=== PATIENT | female | born 1975 | race American Indian/Alaskan Native ===

== ENCOUNTER 2019-11-06 11:36 | Observation (INO) | payer OTHER ==
[2019-11-06 12:51] LABS: Mean Corpuscular HGB Conc 27 % (30-34); Red Blood Count 3.71 M/mm3 (3.65-5.03)
[2019-11-06 12:59] LABS: Mean Corpuscular Volume 52 fl (79-97); Red Cell Distribution Width 32.2 % (13.2-15.2)
[2019-11-06 13:02] LABS: Hematocrit 19.3 % (30.3-42.9); Hemoglobin 5.1 gm/dl (10.1-14.3)
[2019-11-06 13:05] LABS: Blood Urea Nitrogen 8 mg/dL (7-17); Calcium 9.4 mg/dL (8.4-10.2); Hemolysis Index 3
[2019-11-06 13:23] LABS: BUN/Creatinine Ratio 11
[2019-11-06 13:41] LABS: Total Cells Counted 100
[2019-11-06 13:45] LABS: Band Neutrophils # (Manual) 0.1 K/mm3; Basophils % (Manual) 0 % (0.0-1.8)
[2019-11-06 13:51] LABS: Anisocytosis 3+; Hypochromasia 3+; Macrocytosis 1+; Poikilocytosis 3+
[2019-11-06 13:52] LABS: Ovalocytes 1+; Schistocytes 1+; Target Cells Few; Tear Drop Cells 1+
[2019-11-06 13:55] LABS: Platelet Estimate Consistent w Auto
[2019-11-06 13:56] LABS: Platelet Count 117 K/mm3 (140-440)
[2019-11-06] MEDS ORDERED: SODIUM CHLORIDE 0.9% 500 ML 500 ML IV ONE (14:20)
--- NOTE | 2019-11-06 14:24 | Emergency Department Report ---
HPI - General Chief Complaint: Recheck/Abnormal Lab/Rx Time Seen by Provider: 11/06/19 14:15 - HPI HPI: 44-year-old female presents to the emergency department with a complaint of some generalized fatigue and she was sent in to be seen by an urgent care secondary to low hemoglobin. The patient went to the urgent care last weekend when she felt very weak, lightheaded, and had passed out at that time. Patient feels improved from last weekend but still has some fatigue. Patient denies any current vaginal bleeding, rectal bleeding, or any known bleeding. However, she does have a history of fibroids and has had some irregular menstrual cycles in the past. She denies any shortness of breath, chest pain, fever, nausea, vomiting or diaphoresis. She has not taken anything for symptoms prior to presentation today. ED Past Medical Hx - Past Medical History Previous Medical History?: No - Surgical History Past Surgical History?: Yes Additional Surgical History: fibroids ED Review of Systems ROS: Stated complaint: LOW BLOOD LEVEL Other details as noted in HPI Comment: All other systems reviewed and negative Constitutional: weakness. denies: chills, fever Eyes: denies: eye pain, vision change ENT: denies: ear pain, throat pain Respiratory: denies: cough, shortness of breath Cardiovascular: denies: chest pain, palpitations Gastrointestinal: denies: abdominal pain, vomiting Genitourinary: abnormal menses. denies: dysuria, discharge Musculoskeletal: denies: back pain, arthralgia Skin: denies: rash, lesions Neurological: denies: headache, weakness Physical Exam - Physical Exam Vital Signs: Vital Signs 11/06/19 11:56 Temperature 99.2 F Pulse Rate 96 H Respiratory 16 Rate Blood Pressure 132/63 [Left] O2 Sat by Pulse 96 Oximetry Physical Exam: GENERAL: The patient is well-developed well-nourished. HENT: Normocephalic. Atraumatic. Patient has moist mucous membranes. EYES: Extraocular motions are intact. Pale conjunctiva. NECK: Supple. Trachea is midline. CHEST/LUNGS: Clear to auscultation. There is no respiratory distress noted. HEART/CARDIOVASCULAR: Regular. There is no tachycardia. ABDOMEN: Abdomen is soft, nontender. Patient has normal bowel sounds. SKIN: Skin is warm and dry. NEURO: The patient is awake, alert, and oriented. The patient is cooperative. The patient has no focal neurologic deficits. Normal speech. MUSCULOSKELETAL: There is no tenderness or deformity. There is no limitation range of motion. ED Course Vital Signs 11/06/19 11:56 Temperature 99.2 F Pulse Rate 96 H Respiratory 16 Rate Blood Pressure 132/63 [Left] O2 Sat by Pulse 96 Oximetry ED Medical Decision Making - Lab Data Result diagrams: 11/06/19 12:19 11/06/19 12:19 - Medical Decision Making This patient presents to the emergency department with a complaint of some generalized fatigue and weakness. She was sent in by an urgent care after lab work, that was obtained close to a week ago, came back showing the patient to be anemic. On examination she does have some pale conjunctival. Heart and lung sounds are normal to auscultation. Patient has a history of fibroids and dysmenorrhea but does not have any active or recent bleeding. Hemoglobin came back at 5.1. The patient also has some thrombocytopenia with a platelet count of about 117. 1 unit of packed red blood cells have been ordered, as per our transfusion protocol, but the patient will most likely need at least 2 units to get her above 7. Patient will be admitted to the hospital for further evaluation and treatment has been accepted for admission by the hospitalist, Dr. Villagran. Critical Care Time: Yes Critical care time in (mins) excluding proc time.: 35 Critical care attestation.: If time is entered above; I have spent that time in minutes in the direct care of this critically ill patient, excluding procedure time. Critical care time was spent on this patient in doing her initial evaluation, multiple re- evaluations, ordering and interpretation of labs and imaging, ordering of blood for transfusion, discussion with the hospitalist service, and multiple discussions with the patient. Critical Care Time: 35 Minutes ED Disposition Clinical Impression: Symptomatic anemia, Anemia requiring transfusions, Microcytic anemia, Thrombocytopenia, History of uterine fibroid Disposition: DC-09 OP ADMIT IP TO THIS HOSP Is pt being admited?: Yes Condition: Fair Time of Disposition: 14:26
[2019-11-06] MEDS ORDERED: SODIUM CHLORIDE 0.9% 500 ML 500 ML IV SCH (15:00)
[2019-11-06] MEDS ORDERED: ACETAMINOPHEN 325 MG TAB PO PRN (15:01)
[2019-11-06] MEDS ORDERED: ONDANSETRON 4 MG/2 ML INJ IV PRN (15:01)
--- NOTE | 2019-11-06 15:07 | History and Physical Report ---
History of Present Illness Date of examination: 11/06/19 Chief complaint: Symptomatic anemia History of present illness: Patient is a 44-year-old [place] female with history of uterine fibroids apparently passed out 10 days ago, went to urgent care last week, had some blood work done, and she was called today to go to the ED as she was very anemic. She is alert and oriented and offers no specific complaints except feeling weak and tired. She denies any exertional shortness of breath but states that she may have lost about 30 pounds weight in the past 3 months. Has been having heavy irregular cycles for the past 3 months. She denies any palpitations, chest pain melena or heartburn. Patient was noted to have a hemoglobin of 5.1 and she is being admitted for further management Past History Past Medical History: other (Uterine fibroids) Past Surgical History: No surgical history Social history: no significant social history Family history: diabetes, hypertension Medications and Allergies Allergies Allergy/AdvReac Type Severity Reaction Status Date / Time No Known Allergies Allergy Unverified 11/06/19 11:48 Review of Systems Constitutional: weight loss, fatigue, weakness, no fever, no chills, no night sweats Ears, nose, mouth and throat: no ear pain, no hoarseness, no sore throat Cardiovascular: syncope, no chest pain, no palpitations, no lightheadedness, no shortness of breath Respiratory: no cough, no shortness of breath, no dyspnea on exertion Gastrointestinal: no abdominal pain, no nausea, no vomiting, no diarrhea, no constipation, no melena Genitourinary Female: no dysuria Menstruation: period heavy, menses variable Rectal: no pain Musculoskeletal: no myalgias, no arthritis Integumentary: no rash Neurological: syncope, no head injury, no parathesias, no numbness, no seizures Psychiatric: no anxiety, no depression Endocrine: no cold intolerance, no polyphagia, no excessive thirst Exam - Constitutional Vitals: Temp Pulse Resp BP Pulse Ox 99.2 F 96 H 16 132/63 96 11/06/19 11:56 11/06/19 11:56 11/06/19 11:56 11/06/19 11:56 11/06/19 11:56 General appearance: Present: no acute distress - EENT Eyes: Present: PERRL, EOM intact ENT: hearing intact, clear oral mucosa - Neck Neck: Present: supple, normal ROM. Absent: enlarged thyroid, masses or JVD - Respiratory Respiratory effort: normal Respiratory: bilateral: CTA - Cardiovascular Rhythm: regular Heart Sounds: Present: S1 & S2 - Extremities Extremities: No edema - Abdominal General gastrointestinal: Present: soft, non-tender. Absent: hepatomegaly, splenomegaly - Rectal Rectal Exam: deferred - Integumentary Integumentary: Present: clear, warm - Musculoskeletal Musculoskeletal: strength equal bilaterally - Psychiatric Psychiatric: appropriate mood/affect - Neurologic Neurologic: CNII-XII intact, no focal deficits Results - Labs CBC & Chem 7: 11/06/19 12:19 11/06/19 12:19 Labs: Abnormal lab results 11/06/19 11/06/19 11/06/19 Range/Units 12:19 12:19 12:19 Hgb 5.1 L* (10.1-14.3) gm/dl Hct 19.3 L* (30.3-42.9) % MCV 52 L (79-97) fl MCH 14 L (28-32) pg MCHC 27 L (30-34) % RDW 32.2 H (13.2-15.2) % Plt Count 117 L (140-440) K/mm3 Glucose 123 H (65-100) mg/dL Crossmatch See Detail Assessment and Plan - Patient Problems (1) Thrombocytopenia Current Visit: Yes Status: Acute Plan to address problem: Monitor platelets Unclear etiology Needs outpatient follow-up with [facility] operator (2) Syncope Current Visit: Yes Status: Acute Qualifiers: Syncope type: vasovagal syncope Qualified Code(s): R55 - Syncope and collapse Plan to address problem: Likely vasovagal from severe anemia She denies any chest pain or palpitations preceding the syncope Check orthostatics No further work-up for syncope (3) History of uterine fibroid Current Visit: Yes Status: Chronic Plan to address problem: Outpatient follow-up with [facility] (4) Microcytic anemia Current Visit: Yes Status: Chronic Plan to address problem: Likely iron deficiency secondary to heavy menstruation Needs to continue OTC iron tablets once discharged (5) Symptomatic anemia Current Visit: Yes Status: Acute Plan to address problem: We will type and crossmatch and transfuse 2 units of PRBC
[2019-11-06 15:53] LABS: Iron 399 ug/dL (37-170); Total Iron Binding Capacity 493 mcg/dL (250-450)
[2019-11-06] MEDS ORDERED: SODIUM CHLORIDE 0.9% 500 ML 500 ML ONE (17:38)
[2019-11-06] MEDS: FERROUS SULFATE 325 MG TAB PO SCH (20:24)
[2019-11-07 06:19] LABS: Basophils # (Auto) 0.1 K/mm3 (0.0-0.1); Basophils % (Auto) 1.2 % (0.0-1.8); Eosinophils # (Auto) 0.1 K/mm3 (0.0-0.4); Eosinophils % (Auto) 0.9 % (0.0-4.3); Hematocrit 29.9 % (30.3-42.9); Hemoglobin 8.7 gm/dl (10.1-14.3); Lymphocytes # (Auto) 1.6 K/mm3 (1.2-5.4); Lymphocytes % (Auto) 15.7 % (13.4-35.0); Mean Corpuscular HGB Conc 29 % (30-34); Mean Corpuscular Volume 65 fl (79-97); Monocytes # (Auto) 1.1 K/mm3 (0.0-0.8); Red Blood Count 4.58 M/mm3 (3.65-5.03)
[2019-11-07 06:21] LABS: Platelet Count 89 K/mm3 (140-440)
--- NOTE | 2019-11-07 08:43 | Discharge Summary ---
Providers - Providers Date of Admission: 11/06/19 14:26 Date of discharge: 11/07/19 Attending physician: YULISSA VARGAS [facility] Reason for admission: symptomatic anemia Condition: Good Procedures: PRBC transfusion Hospital course: Patient is a 44-year-old [place] female with history of uterine fibroids apparently passed out 10 days ago, went to urgent care last week, had some blood work done, and she was called today to go to the ED as she was very anemic. She is alert and oriented and offers no specific complaints except feeling weak and tired. She denies any exertional shortness of breath but states that she may have lost about 30 pounds weight in the past 3 months. Has been having heavy irregular cycles for the past 3 months. She denies any palpitations, chest pain melena or heartburn. Patient was noted to have a hemoglobin of 5.1 and she is being admitted for further management 11/06 A&O, NAD, No complaints, post transfusion Hb is 8.7 medically stable for discharge Disposition: DC-01 TO HOME OR SELFCARE Time spent for discharge: 34 min - Discharge Diagnoses (1) Thrombocytopenia Status: Acute Comment: platelets dropped from 119 to 89 needs OP f/u with PCP and hematology. Meanwhile will prescribe B12, and iron supplements (2) Syncope Status: Acute Qualifiers: Syncope type: vasovagal syncope Qualified Code(s): R55 - Syncope and collapse Comment: 2/2 to severe anemia (3) History of uterine fibroid Status: Chronic Comment: f/u with [facility] (4) Microcytic anemia Status: Chronic (5) Symptomatic anemia Status: Chronic Comment: post transfusion Hb is 8.7 Core Measure Documentation - Palliative Care Palliative Care/ Comfort Measures: Not Applicable - Core Measures Any of the following diagnoses?: none Exam - Constitutional Vitals: Temp Pulse Resp BP Pulse Ox 97.8 F 66 16 104/53 100 11/07/19 04:34 11/07/19 02:09 11/07/19 04:34 11/07/19 04:34 11/06/19 21:46 General appearance: Present: no acute distress - EENT Eyes: Present: PERRL, EOM intact ENT: hearing intact, clear oral mucosa, no thrush - Neck Neck: Present: supple, normal ROM. Absent: masses or JVD - Respiratory Respiratory effort: normal Respiratory: bilateral: CTA - Cardiovascular Rhythm: regular Heart Sounds: Present: S1 & S2 - Extremities Extremities: No edema Peripheral Pulses: within normal limits - Abdominal General gastrointestinal: Present: soft, non-tender Female genitourinary: Present: deferred - Rectal Rectal Exam: deferred - Integumentary Integumentary: Present: clear, warm - Musculoskeletal Musculoskeletal: strength equal bilaterally - Psychiatric Psychiatric: appropriate mood/affect - Neurologic Neurologic: no focal deficits Plan Activity: no restrictions Weight Bearing Status: Full Weight Bearing Diet: regular Care Plan Goals: F/U with [facility] F/U with PCP and get a referral to hematology for low platelet count Follow up with: BRIELLE MAYFIELD MD [Primary Care Provider] - 7 Days Prescriptions: Cyanocobalamin (Vitamin B-12) [B-12] 1,000 mcg PO DAILY #30 tablet Ferrous Sulfate [Feosol 325 MG tab] 325 mg PO TID #90 tablet
[2019-11-07] MEDS: FERROUS SULFATE 325 MG TAB PO SCH (10:29)
[2019-11-07 13:06] VITALS: BP 121/71
== END 2019-11-07 15:40 | disposition home or self-care (01) ==
LOC: ED 11:36 → 3A 14:26
PROVIDERS: ADMIT Internal Medicine; ATTEND Internal Medicine
DX: D69.6 Thrombocytopenia, unspecified (principal); R55 Syncope and collapse; D25.9 Leiomyoma of uterus, unspecified; D50.9 Iron deficiency anemia, unspecified
CPT/HCPCS: 36415; 36430; 80048; 82728; 83550; 84443; 85007; 85025; 86850; 86900; 86901; 86920; 99291; G0378; J7040; P9016